=== PATIENT | male | born 1955 | race Caucasian/White ===

== ENCOUNTER 2019-04-14 12:35 | Observation (INO) ==
--- NOTE | 2019-03-30 12:58 | PAT Medication Instructions ---
Medication Instructions Date of Service March 30, 2019 Home Medications amlodipine 5 mg PO QAM aspirin [Aspirin Low Dose] 81 mg PO QPM cholecalciferol (vitamin D3) [Vitamin D3] 5,000 unit PO QAM metoprolol succinate 25 mg PO QAM olmesartan 40 mg PO QAM omega-3 fatty acids [Fish Oil Concentrate] 2,000 mg PO BID red yeast rice 600 mg PO BID tamsulosin 0.4 mg PO BID ASK your prescriber and surgeon aspirin [Aspirin Low Dose] 81 mg PO QPM STOP taking 2 weeks before surgery (or as soon as possible if surgery is within 2 weeks) omega-3 fatty acids [Fish Oil Concentrate] 2,000 mg PO BID red yeast rice 600 mg PO BID DO NOT take the morning of surgery cholecalciferol (vitamin D3) [Vitamin D3] 5,000 unit PO QAM olmesartan 40 mg PO QAM Take morning of surgery With a small sip of water, OTHERWISE NOTHING TO EAT OR DRINK AFTER MIDNIGHT: amlodipine 5 mg PO QAM metoprolol succinate 25 mg PO QAM tamsulosin 0.4 mg PO BID Take evening before surgery tamsulosin 0.4 mg PO BID Other Notes If you have any questions please call us at [phone] or [phone] or [phone] or [phone]
--- NOTE | 2019-03-30 13:14 | Anesthesiology Consultation ---
Date of Service March 30, 2019 Assessment & Plan (1) Encounter for pre-operative examination: - ASA instructions: per surgeon/prescriber. Chart Review Chart Review: Acceptable Risk for Surgery and Patient NOT seen in Pre Admission Testing Consults Requested none Teaching & Discussion Pre-Anesthesia Teaching/Discussion Notes: Instructed NPO after midnight before surgery,except medications with 15 cc of water. Medication instructions prov ided according to the PAT guidelines. History Surgery Operation Date: 04/14/19 10:15 Proposed Procedures p Transurethral Resection of the Prostate - Babatunde Justin MD Height/Weight Height: 5 ft 10 in Weight: 109.7 kg Allergies Allergy/AdvReac Type Severity Reaction Status Date / Time No Known Allergies Allergy Verified 03/27/19 13:23 Medications Home Medications Medication Instructions Recorded Confirmed Last Taken amlodipine 5 mg PO QAM 03/27/19 03/27/19 Unknown aspirin [Aspirin Low Dose] 81 mg PO QPM 03/27/19 03/27/19 Unknown cholecalciferol (vitamin D3) 5,000 unit PO QAM 03/27/19 03/27/19 Unknown [Vitamin D3] metoprolol succinate 25 mg PO QAM 03/27/19 03/27/19 Unknown olmesartan 40 mg PO QAM 03/27/19 03/27/19 Unknown omega-3 fatty acids [Fish Oil 2,000 mg PO BID 03/27/19 03/27/19 Unknown Concentrate] red yeast rice 600 mg PO BID 03/27/19 03/27/19 Unknown tamsulosin 0.4 mg PO BID 03/27/19 03/27/19 Unknown Past Medical History Medical History BPH (benign prostatic hyperplasia) Cataract Left History of palpitations controlled on beta jonna Hypertension Obesity Exercise / Class Metabolic Activity II 4-5 Yardwork/Stairs/Walk up hill Past Family History Family History Father Family history of diabetes mellitus Past Surgical History Surgical History History of colonoscopy + polypectomy History of prostate surgery laser Past Anesthesia History No Hx of Anesthesia Complications and No Family Hx of Anesthesia Complications History of PONV No Hx of PONV and No Hx of Motion Sickness Social History Smoking Status: Never smoker Do You Dip or Chew Tobacco: No Hx Alcohol Use: Yes Alcohol type: beer, wine and hard liquor alcohol intake frequency: a few times a week Hx Substance Use: No Review of Systems Patient denies chest pain, shortness of breath, dyspnea on exertion, joint pain, reflux, cough, wheezing, palpitations. Physical Exam Vital Signs VITALS BP 111/75 P 71 TEMP 98.0 SP02 96%RA RESP 16 PHYSICAL Full neck and c-spine range of motion. Full TMJ range of motion. TMD 4 finger breaths Mallampati Score 2 Dentition: missing side, several crown/caps "all over" Lungs: clear throughout to auscultation Cardiac: regular rate and rhythm, no murmurs noted Spine: normal Carotid arteries: negative bruit Extremities: no edema Trimmed alberto Short neck Testing Laboratory Results 03/30/19 13:37 03/30/19 13:37 Urine Color Yellow 03/30/19 13:37 Urine Appearance Clear (Clear) 03/30/19 13:37 Urine pH 5.0 (4.5-7.5) 03/30/19 13:37 Ur Specific [place] 1.017 (1.000-1.030) 03/30/19 13:37 Urine Protein Negative (Negative) 03/30/19 13:37 Urine Glucose (UA) Negative (Negative) 03/30/19 13:37 Urine Ketones Negative (Negative) 03/30/19 13:37 Urine Nitrite Negative (Negative) 03/30/19 13:37 Ur Leukocyte Esterase Negative (Negative) 03/30/19 13:37 Electrocardiogram Date: 03/30/19 Findings: + SB @ (58) SB 58. otherwise normal ecg. Chest X-Ray Date: 03/30/19 XR chest Pre-admission PA/Lat CLINICAL HISTORY: Preoperative chest COMPARISON STUDY: No previous studies for comparison. FINDINGS: The cardiac and mediastinal contours are normal. There is no evidence of focal pulmonary consolidation. There is no evidence of failure. No pleural effusions are visualized.[ IMPRESSION: No active disease in the chest.
--- NOTE | 2019-03-30 13:56 | XRay Report ---
XR chest Pre-admission PA/Lat CLINICAL HISTORY: Preoperative chest COMPARISON STUDY: No previous studies for comparison. FINDINGS: The cardiac and mediastinal contours are normal. There is no evidence of focal pulmonary co nsolidation. There is no evidence of failure. No pleural effusions are visualized.[ IMPRESSION: No active disease in the chest. Electronically signed by: Deejay Rivers M.D. 03/30/2019 1:55 PM
[2019-03-30 16:03] LABS: Appearance Urine Clear (Clear); Bilirubin Urine Negative (Negative); Blood Urine Negative (Negative); Color Urine Yellow; Glucose Urine UA Negative (Negative); Ketones Urine Negative (Negative); Leukocyte Esterase Urine Negative (Negative); Nitrite Urine Negative (Negative); Protein Urine Negative (Negative); Specific Gravity Urine 1.017 (1.000-1.030); Urobilinogen Urine Negative (Negative)
[2019-03-30 16:04] LABS: Basophils # (auto) 0.04 K/uL (0-0.2); Basophils % (auto) 0.6 %; Hematocrit (blood only) 46.8 % (42-52); Hemoglobin 16.6 g/dL (14.0-18.0); Immature Granulocytes # (auto) 0.01 K/uL (0.00-0.02); Immature Granulocytes % (auto) 0.1 %; Lymphocytes # (auto) 2.57 K/uL (1.2-3.4); Lymphocytes % (auto) 38.5 %; Mean Corpuscular Hemoglobin 33.3 pg (25-34); Mean Corpuscular Hgb Conc 35.5 g/dL (32-36); Mean Platelet Volume 10.5 fL (7.4-10.4); Monocytes # (auto) 0.49 K/uL (0.11-0.59); Monocytes % (auto) 7.3 %; Neutrophils # (auto) 3.37 K/uL (1.4-6.5); Neutrophils % (auto) 50.5 %; Platelet Count 249 K/uL (130-400); RDW Coefficient of Variation 12.7 % (11.5-14.5); RDW Standard Deviation 43.6 fL (36.4-46.3); Red Blood Count 4.98 M/uL (4.7-6.1); White Blood Count 6.68 K/uL (4.8-10.8)
[2019-03-30 16:13] LABS: BUN Creatinine Ratio 20.3 (10-20); Creatinine Clr Calc Pharmacy 74.3 ml/min; Est GFR (Non-African American) 61.2; Potassium 5.1 mmol/L (3.5-5.1)
[~2019-04-14 12:35] MED LIST: CIPROFLOXACIN 400 MG/200 ML BAG IV SCH; LR 15ML/HR IV SCH
[2019-04-14] MEDS ORDERED: fentaNYL citrate 100 MCG/2 ML VIAL ONE ×3 (12:40→14:12)
[2019-04-14] MEDS ORDERED: MIDAZOLAM HCL 1 MG/ML 2ML VIAL ONE (12:40)
[2019-04-14] MEDS ORDERED: LIDOCAINE HCL 2% 2 ML VIAL/AMP(20MG/ML) INFIL ONE (12:41)
[2019-04-14] MEDS ORDERED: ONDANSETRON INJ 2 MG/ML 2 ML VIAL ONE (12:41)
[2019-04-14] MEDS ORDERED: PROPOFOL IV EMULSION 10 MG/ML 20 ML VIAL IV ONE (12:41)
--- NOTE | 2019-04-14 13:18 | History & Physical Bridge Note ---
Date of Service April 14, 2019 History & Physical Bridge Note I have examined the patient, reviewed the History & Physical and in the interval since the performance of the History & Physical I have noted the following changes of clinical significance: no changes noted
[2019-04-14] MEDS ORDERED: ePHEDrine sulfate 50 MG/ML AMP IV PRN (13:44)
[2019-04-14] MEDS ORDERED: METOCLOPRAMIDE HCL INJ 5 MG/ML 2 ML VIAL IV PRN (13:44)
[2019-04-14] MEDS ORDERED: ONDANSETRON INJ 2 MG/ML 2 ML VIAL IV PRN ×2 (13:44→15:56)
[2019-04-14] MEDS ORDERED: PROMETHAZINE HCL 12.5 MG in SODIUM CHLORIDE 0.9% 50 ML IV PRN (13:44)
[2019-04-14] MEDS ORDERED: DEXAMETHASONE SOD INJ 4 MG/ML VIAL IV PRN (13:44)
[2019-04-14] MEDS ORDERED: HYDROmorphone INJ 2 MG/ML SYR/VIAL IV PRN (13:44)
[2019-04-14] MEDS ORDERED: ATROPINE SULFATE 0.1 MG/ML 10ML SYR IV PRN (13:44)
[2019-04-14] MEDS ORDERED: fentaNYL citrate 100 MCG/2 ML VIAL IV PRN (13:44)
[2019-04-14] MEDS ORDERED: ePHEDrine sulfate 50 MG/ML AMP ONE (14:20)
--- NOTE | 2019-04-14 15:00 | Anesthesiology Progress Note ---
Date of Service April 14, 2019 Anesthesia Post Procedure Vital Signs Vital Signs: Temp Pulse Pulse Resp BP BP Pulse Ox 04/14/19 14:55 79 17 97/65 L 98 04/14/19 14:45 74 16 97/66 L 97 04/14/19 14:38 36.2 C L 73 14 89/51 L 94 04/14/19 12:50 36.5 C 61 18 116/71 97 Transfer of Care Handoff Completed per policy Notes Mental Status: alert / awake / arousable and participated in evaluation Patient Amnestic to Procedure: Yes Nausea / Vomiting: adequately controlled Pain: adequately controlled Airway Patency, RR, SpO2: stable & adequate BP & HR: stable & adequate Hydration State: stable & adequate Anesthetic Complications: no major complications apparent
--- NOTE | 2019-04-14 15:07 | Operative Report ---
PG Post Operative Report Pre & Post Diagnosis Operation Date: 04/14/19 14:10 Pre-Op Diagnosis: BENIGN PROSTATIC HYPERPLASIA Post-Op Diagnosis: BENIGN PROSTATIC HYPERPLASIA I identified the patient and participated in the time-out.: Yes Procedure Operation Date: 04/14/19 14:10 Actual Procedures p Transurethral Resection of the Prostate(Not Applicable) - Babatunde Justin MD Surgeon Mihir Justin MD Travel Registered Nurse Pacu none Estimated Blood Loss 10 Findings Consistent with Post-Op Diagnosis Specimens none Description of Procedure The patient was identified in the preopertive holding area, appropriate informed consents were reviewed and completed and the patient was transferred to the operative suite. Upon arrival, appropriate antibiotics and anesthesia were administered and the patient was placed in dorsal lithotomy position and prepped and draped in sterile fashion. To begin the case I passed a 17 [place] cy stoscope with 30 degree lens. Of note, I attempted to scope this gentleman in the office prior to the surgery and I was unable to pass the scope successfully into the bladder secondary to what appeared to be a bladder neck contracture. With this in mind I began with a 17 [place] scope and advanced to the level of the bladder neck. He has a large prostate with a very high bladder neck. I was unable to pass this into the bladder. I then exchanged this for a 22 [place] scope with the thought of passing a wire through the working element. As a was able to pass a wire into the bladder it demonstrated the true lumen of the urethra and I was able to push the scope through this dilating the bladder neck to accommodate the 22 [place] scope. It appears that the bladder neck contracture was not particularly dense, and after passing the scope once I was able to pass [id number]. Of note, however the size of his prostate makes reaching the bladder somewhat challenging. He has substantial lateral lobe hypertrophy in addition to a high bladder neck. Following my evaluation and confirmation of a healthy appearing bladder, I exchanged the 22 [place] cystoscope for 27 [place] resectoscope. Utilizing a button electrode I began by vaporizing the area around the bladder neck with care to avoid encroachment upon the UOs. I then proceeded to resect the left lateral lobe followed by the right lateral lobe. As I trimmed the substantial apical tissue, and the prostatic fossa was noted to be substantially improved and widely patent. I felt that I had adequately treated the tissue to facilitate a drastic improvement in his voiding pattern. Hemostasis was excellent. I left the bladder full and withdrew my scope. With gentle pressure in the suprapubic area he generated a strong stream. I placed a 22 [place] Heaton catheter without difficulty and concluded the case. He was extubated and taken to the PACU in stable condition. There were no complications. I attest to the content of the Intraoperative Record and any orders documented therein. Any exceptions are noted below.
[2019-04-14] MEDS ORDERED: ACETAMINOPHEN W/CODEINE #3 1 TAB PO PRN ×2 (15:56)
[2019-04-14] MEDS ORDERED: ACETAMINOPHEN 325 MG TAB PO PRN (15:56)
[2019-04-14] MEDS: LACTATED RINGER'S 1,000 ML IV SCH (16:55)
[2019-04-14] MEDS ORDERED: SODIUM CHLORIDE 0.9% 1000ML 500 ML IV ONE (17:40)
--- NOTE | 2019-04-14 18:47 | Consultation ---
Date of Consultation April 14, 2019 Assessment & Plan (1) Pre-syncope: 63-year-old male was admitted on 14 April 2019 to the urology service after undergoing a transurethral resection of the prostate on the same date. Urology requested this medical consult following a code purple event for dizziness / pre-syncope. Pre-syncope: Patient had a code purple event related to pre-syncope during the time of which he felt like he had to have a bowel movement. Patient notes a history of vagal symptoms in the past. Never actually passed out. No trauma. Do not suspect an acute neurologic or cardiovascular event otherwise. No reports of increased blood loss to suspect overt anemia. - At time of consult this evening, patient has been afebrile postop. HR in the 60s. BP is low as 89/51, since up to 117/78. Good SpO2 on both room air and nasal cannula oxygen. Pre-op hemoglobin 16. Accu-Chek at code purple was 121. - Was given 500 mL normal saline bolus. On LR at 150 mL an hour. - Recommend monitor for now. Routine labs in the a.m. BPH and LUTS: Status post TURP on . No complications were mentioned in the operative report. Management per urology. Ongoing medical issues: - Hypertension: Continue home metoprolol, amlodipine, and olmesartan. Home aspirin was held. - Palpitations: No reported symptoms for years. Code status: Full code. Diet: Regular. DVT prophy: PT/OT: Deferred. Disbo: Per urology. Medicine will follow. (2) BPH NOS w ur obs/LUTS: (3) Hypertension: (4) Palpitations: Supervising Physician Co-Signing Physician Notes Patient seen and examined with Dr. Javier. I agree with their exam findings, review of systems, assessment and plan. I have personally reviewed the lab work and imaging from today. patient feeling fine after a pre-syncopal event earlier around the time he was trying to have a BM, most likely vasovagal exam: WDWN male in no distress, lungs CTA, normal resp effort, S1 S2 regular, no murmurs, abdomen soft, NT, ND, +BS - Presyncope: most likely vasovagal, agree with 500cc bolus follow vitals, check labs in AM management per urology will check in the morning on 04/15, if feeling okay then will likely sign off History of Present Illness Attending Physician: Mihir Justin MD History of Present Illness Urology service requested this medicine consult following a code purple event earlier this evening. Patient underwent a TURP earlier today with Dr. Justin. Spoke with patient at bedside. He was eating his dinner and speaking with his . He states that surgery went well and he had no particular concerns. However, he continues to get the feeling as if he has to have a bowel movement. He was able to get out of his hospital bed and ambulate without assistance to the bathroom. Upon sitting on the commode he had the sudden feeling as if he was lightheaded. He never passed out and he recalls all the events. At this time a code purple was called as a precaution. Following the initial evaluation, patient says that his lightheadedness quickly resolved. He presently denies any particular concerns. He says that he does have some "discomfort" around his suprapubic area but that is not painful. He denies any headache, dizziness, chest pain, shortness breath, abdominal pain, back pain, or other focal concerns. Of note, patient does say he has a history of vagal type symptoms at times when he has to have a bowel movement as well as when he had a previous prostate surgery many years ago. - Past medical history includes BPH with urinary obstruction, nocturia, nephrolithiasis, JOSE MARIA, palpitations, hypertension, left cataract, obesity. - Past surgical history includes TURP as above, prior prostate surgery years ago, and colonoscopy/polypectomy. - Social history includes never smoking. Alcohol use a few times a week. Lives at home with his . Allergies Allergy/AdvReac Type Severity Reaction Status Date / Time No Known Allergies Allergy Verified 04/14/19 13:01 Home Medications Home Medications Medication Instructions Recorded Confirmed Type amlodipine 5 mg PO QAM 03/27/19 04/14/19 History aspirin [Aspirin Low Dose] 81 mg PO QPM 03/27/19 04/14/19 History cholecalciferol (vitamin D3) 5,000 unit PO QAM 03/27/19 04/14/19 History [Vitamin D3] metoprolol succinate 25 mg PO QAM 03/27/19 04/14/19 History olmesartan 40 mg PO QAM 03/27/19 04/14/19 History omega-3 fatty acids [Fish Oil 2,000 mg PO BID 03/27/19 04/14/19 History Concentrate] red yeast rice 600 mg PO BID 03/27/19 04/14/19 History tamsulosin 0.4 mg PO BID 03/27/19 04/14/19 History Patient History Medical History BPH (benign prostatic hyperplasia) Cataract Left History of palpitations controlled on beta jonna Hypertension Obesity Surgical History History of colonoscopy + polypectomy History of prostate surgery laser Family History Father Family history of diabetes mellitus Social History Preferred Language: Kazakh Communication Ability: Effective Beliefs That Will Affect Care: None Current Living Situation: Spouse Feels Safe at Home: Yes Smoking Status: Never smoker Do You Dip or Chew Tobacco: No ; Second Hand Exposure: No ; Hx Alcohol Use: Yes Alcohol type: beer, wine and hard liquor Hx Substance Use: No Review of Systems Review of Systems: Constitutional: Denies fevers, chills, focal weakness Eyes: Denies any visual loss or diplopia ENT: Denies any ear/nose/throat pain or difficulty speaking or swallowing Respiratory: Denies any dyspnea, cough, hemoptysis Cardiovascular: Denies any chest pain or feeling of edema Gastrointestinal: Denies any abdominal pain, nausea/vomiting/diarrhea Musculoskeletal: Denies any acute extremity pains, myalgias, or focal weakness Skin: Denies any known acute rashes or lesions Neuro: Denies any headache, acute focal weakness or numbness, or difficulties with speech or swallow. Physical Exam Physical Exam: GENERAL: Awake, alert, well-appearing, in no acute distress HENT: Normocephalic, atraumatic. Oropharynx unremarkable. EYES: Normal conjunctiva. Sclera non-icteric. NECK: Inspection normal. Non-tender. Supple and full ROM. No nuchal rigidity. CARDIAC: +S1S2 RRR, no murmurs. RESPIRATORY: Clear to auscultation. No wheezes or rales. Normal respiratory effort. GI: +BS, soft, non-distended. No tenderness to palpation. No rebound or guarding. Heaton catheter in place. No blood around the meatus. Heaton is draining bright red watery/bloody urine. No active bleeding around the meatus. EXTREMITIES: No pedal edema or calf tenderness. Moving all extremities naturally and easily. NEURO: No gross neuro deficits. Results & Data Vital Signs (Past 12 Hours) Vital Signs Temp Pulse Pulse Resp BP BP Pulse Ox 04/14/19 17:52 60 17 117/78 98 04/14/19 17:20 36.5 C 59 L 18 100/64 96 04/14/19 16:18 36.4 C L 65 17 105/66 94 04/14/19 15:45 36.9 C 65 18 104/66 95 04/14/19 15:24 36.8 C 64 14 97/60 L 98 04/14/19 15:15 73 14 103/59 L 97 04/14/19 15:05 73 14 107/58 L 94 04/14/19 14:55 79 17 97/65 L 98 04/14/19 14:45 74 16 97/66 L 97 04/14/19 14:38 36.2 C L 73 14 89/51 L 94 04/14/19 12:50 36.5 C 61 18 116/71 97 Laboratory Results 04/14/19 Range/Units 17:14 POC Glucose 121 H (70-99) Medications Administered Current Inpatient Medications Acetaminophen (Tylenol) 650 mg PO Q6H PRN PRN Reason: mild pain (scale 1-3) Stop: 05/14/19 15:55 Acetaminophen/Codeine Phosphate (Tylenol W/Codeine #3) 1 tab PO Q6H PRN PRN Reason: moderate pain (scale 4-6) Stop: 05/14/19 15:55 Acetaminophen/Codeine Phosphate (Tylenol W/Codeine #3) 2 tab PO Q6H PRN PRN Reason: severe pain (scale 7-10) Stop: 05/14/19 15:55 Amlodipine Besylate (Norvasc) 5 mg PO QAM LAWANDA Stop: 05/15/19 08:59 Fish Oil ([place]-3 (Purified Fish Oil)) 2 gm PO BID LAWANDA Stop: 05/14/19 20:59 Lactated Ringer's (Lr) 1,000 mls @ 15 mls/hr IV .Q24H LAWANDA Stop: 04/15/19 05:59 Last Infusion: 04/14/19 13:27 Dose: Infused Documented by: Ciprofloxacin (Cipro) 400 mg in 200 mls @ 100 mls/hr IV PREOP LAWANDA Stop: 04/15/19 05:59 Last Admin: 04/14/19 15:58 Dose: Not Given Documented by: Lactated Ringer's (Lr) 1,000 mls @ 150 mls/hr IV .Q6H40M [facility] Stop: 05/14/19 15:59 Last Infusion: 04/14/19 17:45 Dose: 150 mls/hr Documented by: Cefazolin Sodium (Ancef 2000mg) 2,000 mg in 15 mls @ 3.75 mls/min IV Q8H [facility]; Protocol Stop: 04/15/19 05:03 Metoprolol Succinate (Toprol Xl) 25 mg PO QAM [facility] Stop: 05/15/19 08:59 Olmesartan (Benicar) 40 mg PO QAM [facility] Stop: 05/15/19 08:59 Ondansetron HCl (Zofran) 4 mg IV Q6H PRN PRN Reason: Nausea And Vomiting Stop: 05/14/19 15:55 Tamsulosin HCl (Flomax) 0.4 mg PO BID [facility] Stop: 05/14/19 20:59 Vitamin D (Vitamin D3) 5,000 [facility] [place] Stop: 05/15/19 08:59 PG Care Time/CCT Total # of Minutes Spent Total Time Spent with Patient: Total time spent is greater than 50% in coordination of care (as documented) at patient's floor/unit and/or counseling patient: Resident Activity Tracking Resident Involvement: Resident Care Provided Care Provided: Adult Hospital Medicine
[2019-04-14] MEDS ORDERED: NON-FORMULARY MEDICATION (Red Yeast Rice 600 MG) PO SCH (21:00)
[2019-04-14] MEDS: CEFAZOLIN 2000MG 2,000 MG/15 ML SYR IV SCH (21:56)
[2019-04-14] MEDS: TAMSULOSIN HCL 0.4 MG CAP PO SCH (21:57)
[2019-04-14] MEDS: OMEGA-3 (PURIFIED FISH OIL) 1 GM CAP PO SCH (21:57)
[2019-04-15] MEDS: LACTATED RINGER'S 1,000 ML IV SCH ×2 (00:01→06:13)
[2019-04-15] MEDS: CEFAZOLIN 2000MG 2,000 MG/15 ML SYR IV SCH (05:26)
[2019-04-15 05:31] LABS: Basophils # (auto) 0.03 K/uL (0-0.2); Basophils % (auto) 0.3 %; Eosinophils # (auto) 0.29 K/uL (0-0.5); Hematocrit (blood only) 41.6 % (42-52); Hemoglobin 14.8 g/dL (14.0-18.0); Immature Granulocytes # (auto) 0.02 K/uL (0.00-0.02); Immature Granulocytes % (auto) 0.2 %; Lymphocytes # (auto) 2.13 K/uL (1.2-3.4); Lymphocytes % (auto) 22.4 %; Mean Corpuscular Hemoglobin 33.2 pg (25-34); Mean Corpuscular Hgb Conc 35.6 g/dL (32-36); Mean Corpuscular Volume 93.3 fL (80-100); Monocytes # (auto) 0.66 K/uL (0.11-0.59); Monocytes % (auto) 6.9 %; Neutrophils # (auto) 6.39 K/uL (1.4-6.5); Neutrophils % (auto) 67.2 %; Platelet Count 196 K/uL (130-400); RDW Coefficient of Variation 12.6 % (11.5-14.5); RDW Standard Deviation 42.9 fL (36.4-46.3); Red Blood Count 4.46 M/uL (4.7-6.1); White Blood Count 9.52 K/uL (4.8-10.8)
[2019-04-15 06:03] LABS: BUN Creatinine Ratio 16.7 (10-20); Calcium 7.9 mg/dl (8.5-10.1); Creatinine Clr Calc Pharmacy 63.9 ml/min; Est GFR (African American) 59.6; Est GFR (Non-African American) 51.5; Potassium 3.6 mmol/L (3.5-5.1)
[2019-04-15] MEDS: TAMSULOSIN HCL 0.4 MG CAP PO SCH (08:58)
[2019-04-15] MEDS ORDERED: CHOLECALCIFEROL 1,000 UNITS TAB PO SCH (09:00)
[2019-04-15] MEDS ORDERED: METOPROLOL SUCC 25MG EXT REL TAB PO SCH (09:00)
[2019-04-15] MEDS ORDERED: OLMESARTAN MEDOXOMIL 40 MG TAB PO SCH (09:00)
[2019-04-15] MEDS ORDERED: AMLODIPINE BESYLATE 5 MG TAB PO SCH (09:00)
[2019-04-15] MEDS: OMEGA-3 (PURIFIED FISH OIL) 1 GM CAP PO SCH (09:00)
--- NOTE | 2019-04-15 10:40 | Family Medicine Consultation ---
Date of Consultation April 15, 2019 Assessment & Plan (1) Pre-syncope: Mr. Doe is a 63 year old male who was admitted to [facility] on 14 April 2019 to the urology service after undergoing a transurethral resection of the prostate on the same date. No complications were reported from the surgery. Urology requested this medical consult following a code purple event for dizziness / pre-syncope several that occurred several hours into the post-operative period. Pre-syncope: Mr. Doe was using the restroom when this event occurred. He was about to have a BM when a code purple was called. Mr. Doe denies actually passing out, although nursing notes indicate a transient LOC. Mr. Doe insists that he did not fall, strike his head, or injure himself in anyway. Patient details a history of vagal symptoms in the past, all of which occurred in the bathroom while either having a BM or vomiting. This event likely represents a vasovagal response to high parasympathetic tone preceding a BM. Suspicion for an acute neurologic (no witnessed seizure like activity, no post- ictal state) or cardiovascular event (no preceding chest pain or palpitations) is low at this time. Mr. Doe's BP have run low-normal since his admission. There were no reports of increased blood loss during the surgery to suspect overt anemia, and he has received Lactated Ringers at a maintenance rate of 150mls/hr in the post-operative period. Thus, hypovolemia as an etiology is unlikely. On exam today patient has stable vitals (afebrile, BP 107/74, pulse 75). He denies a recurrence of similar symptoms since the code purple yesterday. Review of baseline labs confirmed a normal Hgb of 14.8 and stable electrolytes. Recommended no further work-up related to pre-syncope event. He should follow up as directed with his urologist. Counseled patient to sit/stand up slowly in the future to minimize recurrent vasovagal symptoms. (2) BPH NOS w ur obs/LUTS: (3) Hypertension: (4) Palpitations: Supervising Physician Co-Signing Physician Notes Patient seen and examined with Dr. Sánchez. I agree with their exam findings, review of systems, assessment and plan. I have personally reviewed the lab work and imaging from today. patient doing great, no further issues, okay to go home exam: WDWN male in no distress, lungs CTA, normal resp effort, S1 S2 regular, no murmurs, abdomen soft, NT, ND, +BS - Presyncope: most likely vasovagal, no further episodes vitals and labs stable this morning management per urology this should not be a full consultation, should be a follow up progress note, see billing History of Present Illness Attending Physician: Mihir Justin MD Allergies Allergy/AdvReac Type Severity Reaction Status Date / Time No Known Allergies Allergy Verified 04/14/19 13:01 Home Medications Home Medications Medication Instructions Recorded Confirmed Type amlodipine 5 mg PO QAM 03/27/19 04/14/19 History cholecalciferol (vitamin D3) 5,000 unit PO QAM 03/27/19 04/14/19 History [Vitamin D3] metoprolol succinate 25 mg PO QAM 03/27/19 04/14/19 History olmesartan 40 mg PO QAM 03/27/19 04/14/19 History omega-3 fatty acids [Fish Oil 2,000 mg PO BID 03/27/19 04/14/19 History Concentrate] red yeast rice 600 mg PO BID 03/27/19 04/14/19 History tamsulosin 0.4 mg PO BID 03/27/19 04/14/19 History acetaminophen-codeine 1 tab PO TID PRN #10 tab 04/15/19 Rx [Tylenol-Codeine #3] ciprofloxacin HCl 500 mg PO BID 3 Days #6 tab 04/15/19 Rx docusate sodium [Colace] 100 mg PO BID #60 cap 04/15/19 Rx tamsulosin 0.4 mg PO BID 30 Days #60 cap 04/15/19 Rx Patient History Medical History BPH (benign prostatic hyperplasia) Cataract Left History of palpitations controlled on beta jonna Hypertension Obesity Surgical History History of colonoscopy + polypectomy History of prostate surgery laser Family History Father Family history of diabetes mellitus Social History Preferred Language: Bengali Communication Ability: Effective Beliefs That Will Affect Care: None Current Living Situation: Spouse Feels Safe at Home: Yes Smoking Status: Never smoker Do You Dip or Chew Tobacco: No ; Second Hand Exposure: No ; Hx Alcohol Use: Yes Alcohol type: beer, wine and hard liquor Hx Substance Use: No Review of Systems Review of Systems: Denies discomfort. Has not felt lightheaded upon rising from a supine or seated position. No palpitations. Physical Exam Constitutional: WD/WN, vitals as above Eyes: + anicteric sclerae ENMT: external ear and nose normal, oropharynx normal Neck: trachea midline Respiratory: normal respiratory effort, lungs clear to auscultation Cardiovascular: RRR, no murmur, no edema Heart Sounds: normal S1 and normal S2 Skin: no rashes, warm and dry Neurologic: No focal deficits Psychiatric: A+Ox3, euthymic affect Genitourinary: Heaton catheter in place draining yellow colored urine. No vi sible clots Results & Data Vital Signs (Past 12 Hours) Vital Signs Temp Pulse Pulse Pulse Resp BP Pulse Ox 04/15/19 08:55 75 107/74 04/15/19 07:17 36.8 C 66 18 109/70 93 04/15/19 03:20 36.9 C 69 16 112/67 94 04/14/19 23:53 36.9 C 65 16 106/66 94 Laboratory Results 04/15/19 04/15/19 04/14/19 Range/Units 04:31 04:31 17:14 WBC 9.52 (4.8-10.8) K/uL RBC 4.46 L (4.7-6.1) M/uL Hgb 14.8 (14.0-18.0) g/dL Hct 41.6 L (42-52) % MCV 93.3 (80-100) fL MCH 33.2 (25-34) pg MCHC 35.6 (32-36) g/dL RDW Std Deviation 42.9 (36.4-46.3) fL RDW Coeff of Loren 12.6 (11.5-14.5) % Plt Count 196 (130-400) K/uL MPV 10.0 (7.4-10.4) fL Immature Gran % (Auto) 0.2 % Neut % (Auto) 67.2 % Lymph % (Auto) 22.4 % [place] % (Auto) 6.9 % Eos % (Auto) 3.0 % Baso % (Auto) 0.3 % Immature Gran # (Auto) 0.02 (0.00-0.02) K/uL Neut # (Auto) 6.39 (1.4-6.5) K/uL Lymph # (Auto) 2.13 (1.2-3.4) K/uL [place] # (Auto) 0.66 H (0.11-0.59) K/uL Eos # (Auto) 0.29 (0-0.5) K/uL Baso # (Auto) 0.03 (0-0.2) K/uL Sodium 139 (136-145) mmol/L Potassium 3.6 (3.5-5.1) mmol/L Chloride 106 (98-107) mmol/L Carbon Dioxide 25 (21-32) mmol/L Anion Gap 8.0 (3-11) BUN 24 H (7-18) mg/dl Creatinine 1.42 H (0.6-1.4) mg/dl Est Cr Clr Drug Dosing 63.9 ml/min Est GFR ( Amer) 59.6 Est GFR (Non-Af Amer) 51.5 BUN/Creatinine Ratio 16.7 (10-20) Glucose 115 H (70-99) mg/dl POC Glucose 121 H (70-99) Calcium 7.9 L (8.5-10.1) mg/dl PG Care Time/CCT Total # of Minutes Spent Total Time Spent with Patient: Total time spent is greater than 50% in coordination of care (as documented) at patient's floor/unit and/or counseling patient: Resident Activity Tracking Resident Involvement: Resident Care Provided Care Provided: Adult Hospital Medicine
--- NOTE | 2019-04-15 11:13 | Urology Progress Note ---
Date of Service April 15, 2019 Assessment & Plan (1) BPH NOS w ur obs/LUTS: 63yo M s/p TURP with Dr. Justin Pt evaluated by Dr. Justin personally this AM, then by myself later this morning. Heaton D/C'd per previous order. Pt voided 200cc bloody urine. No pain or dysuria. Feels he is doing well and ready for discharge. Expected clinical course and discharge instructions reviewed. All questions answered, at bedside. Followup appts confirmed. Please see additional notes per my attending physician as indicated. Subjective 63yo M POD #1 s/p TURP with Dr. Justin. Code purple near syncopal event/ vagal event while attempting to have BM last evening, notes reviewed. Pt now feeling well. Tolerating regular PO. ambulating well. Pain controlled. Review of Systems Review of Systems: All systems reviewed & are unremarkable except as noted in HPI & below Physical Exam Physical Exam: A&Ox3 RRR abd soft, nontender : urine draining bloody Results & Data Vital Signs (Past 12 Hours) Vital Signs Temp Pulse Pulse Pulse Resp BP Pulse Ox 04/15/19 08:55 75 107/74 04/15/19 07:17 36.8 C 66 18 109/70 93 04/15/19 03:20 36.9 C 69 16 112/67 94 04/14/19 23:53 36.9 C 65 16 106/66 94 PG Care Time/CCT Total # of Minutes Spent Total Time Spent with Patient: Total time spent is greater than 50% in coordination of care (as documented) at patient's floor/unit and/or counseling patient:
--- NOTE | 2019-04-20 13:59 | Discharge Summary ---
Date of Service April 20, 2019 Admission HPI Per Admitting Provider Refractory voiding dysfunction; bladder neck contracture and substantial obstruction from the lateral lobes of the prostate. Presents to the hospital for TURP Principal Diagnosis BPH Discharge Data Allergies Allergy/AdvReac Type Severity Reaction Status Date / Time No Known Allergies Allergy Verified 04/14/19 13:01 Consultations 04/14/19 17:30 Consult Internal Medicine Routine Procedures Performed Operation Date: 04/14/19 14:10 Actual Procedures p Transurethral Resection of the Prostate(Not Applicable) - Babatunde Justin MD Hospital Course (1) BPH NOS w ur obs/LUTS: Presented for TURP, details of the procedure as dictated previously in the operative report, however, in summary tolerated the procedure extremely well. He had one event on the evening of the surgery, he had a vasovagal episode while attempting to have a bowel movement. No subsequent blood pressure issues. He was tolerating his catheter well, he was tolerating a diet well, and he was ambulatory on postoperative day #1. He subsequently passed a voiding trial and was discharged home in stable condition. Total Time Total Time Spent Total Time Spent (In Minutes): 15 Total Time Includes: Examination of the Patient Discharge Plan Discharge Items Patient Disposition: Home - Self-Care Reason For Visit: BENIGN PROSTATIC HYPERPLASIA W/LOWER URINARY TRACT Discharge Diagnosis: BPH with LUTS Condition on Discharge: Good Activity: Per Instructions section Bathing: No limitations Sexual Activity: Wait until after follow-up appointment Exercise/Sports: Wait until after follow-up appointment Driving/Machine Use: Do not drive while taking prescription pain control Non-emergency contact: Urologist Call non-emergency contact if: your pain is not controlled, your pain is unusual for you, your pain is concerning for you and your temperature is above 101 Follow-up/Referrals: Jose Purcell [Primary Care Provider] - Diet: Regular Addtl Attending Provider Instructions: Please take all medications as prescribed and keep all follow-ups as scheduled. Please call our office at [phone] with any questions, concerns or need to reschedule appointments for any reason. We are happy to assist you. Okay to restart your baby aspirin in 3-4 days once hematuria has slowed down. Tips for your recovery at home: Dont be alarmed by brownish or reddish blood or clots in your urine. This is a result of the procedure. This may occur off and on for weeks to months after the procedure but should continue to improve. Drink plenty of fluids during the day (enough to keep your urine very light colored). This will help keep a healthy flow of urine. Do not lift >25 lbs until your followup Avoid constipation. Please use a stool softener (Colace) for the first two weeks after your procedure Be sure to finish the antibiotics as prescribed. If you go home with a catheter, please wash tubing where it enters your body twice daily with mild soap (Dove or Dial). Once your catheter is removed, expect some blood in your urine and some burning when you urinate. You should have an appointment to have this removed, if you do not please call our office to arrange. When to call [facility] U[facility] at [phone]: Your urine contains heavy blood clots You are constantly leaking urine Fever of 101F or higher, chills, nausea, or vomiting Your pain is not relieved with medication Pending Studies at Discharge: No Stand-Alone Forms: My [facility], Opioid Pain Management Medications and DC Order Prescriptions: New docusate sodium [Colace] 100 mg capsule 100 mg PO BID Qty: 60 RF: 0 tamsulosin 0.4 mg capsule 0.4 mg PO BID 30 Days Qty: 60 RF: 0 acetaminophen-codeine [Tylenol-Codeine #3] 300-30 mg tablet 1 tab PO TID PRN (Reason: pain) Qty: 10 RF: 0 Continued omega-3 fatty acids [Fish Oil Concentrate] 1,000 mg Capsule 2,000 mg PO BID RF: 0 amlodipine 5 mg Tablet 5 mg PO QAM RF: 0 tamsulosin 0.4 mg Capsule 0.4 mg PO BID RF: 0 metoprolol succinate 25 mg Tablet Extended Release 24 Hr 25 mg PO QAM RF: 0 olmesartan 40 mg Tablet 40 mg PO QAM RF: 0 cholecalciferol (vitamin D3) [Vitamin D3] 5,000 unit Tablet 5,000 unit PO QAM RF: 0 red yeast rice 600 mg Tablet 600 mg PO BID RF: 0 Discontinued aspirin [Aspirin Low Dose] 81 mg Tablet,Delayed Release (Dr/Ec) 81 mg PO QPM RF: 0 Discharge Orders: Discharge Order (Routine); Ordered 04/15/19 Ordered By: Jaye Agarwal/Other Patient Handouts: Surgery Prevent DVT After Admission Data Admit Date/Time: 04/14/19 15:08 Attending Provider: Babatunde Justin Admit Provider: Babatunde Justin Primary Care Provider: Jose Purcell Other Providers: Cyrus Sherman ; Heath Torres Other Interventions: Discharge Summary Assessment (RN) Last Done: 04/15/19 11:00 DC Date/Time DO NOT enter until pt leaves facility: 04/15/19 12:17
== END 2019-04-15 12:17 | disposition home or self-care (01) ==
LOC: ASU 12:35 → 3N 12:35